=== PATIENT | female | born 1955 | race Caucasian/White ===

== ENCOUNTER 2017-03-29 08:49 | Outpatient (CLI) | payer OTHER | END 2017-03-29 11:11 | LOC: D.MAMMO 08:49 | DX: Z12.31 Encounter for screening mammogram for malignant neoplasm of breast (principal) ==

== ENCOUNTER 2018-07-25 08:58 | Outpatient (CLI) | payer OTHER | END 2018-07-25 23:59 | disposition home or self-care (01) | LOC: D.MAMMO 08:58 | DX: Z12.31 Encounter for screening mammogram for malignant neoplasm of breast (principal) ==